=== PATIENT | female | born 1965 | race Caucasian/White ===

== ENCOUNTER → 2020-06-14 12:03 | Outpatient (BNVA) | payer BC, SELFPAY | PROVIDERS: Visit Provider Family Medicine | DX: E78.5 Hyperlipidemia, unspecified (principal); I10 Essential (primary) hypertension; G47.00 Insomnia, unspecified | CPT/HCPCS: 80053; 80061; 83721 ==

== ENCOUNTER → 2021-01-03 11:26 | Outpatient (BNVA) | payer BC, SELFPAY | PROVIDERS: Visit Provider Family Medicine | DX: E78.5 Hyperlipidemia, unspecified (principal); Z68.32 Body mass index [BMI] 32.0-32.9, adult | CPT/HCPCS: 80053; 80061; 84443; 85025 ==

== ENCOUNTER → 2021-05-29 10:18 | Outpatient (BNVA) | payer BC, SELFPAY | PROVIDERS: Visit Provider Family Medicine | DX: E78.5 Hyperlipidemia, unspecified (principal); G47.00 Insomnia, unspecified; I10 Essential (primary) hypertension | CPT/HCPCS: 80053; 80061; 85025 ==

== ENCOUNTER → 2021-12-20 14:47 | Outpatient (BNVA) | payer BC, SELFPAY | PROVIDERS: Visit Provider Family Medicine | DX: M79.644 Pain in right finger(s) (principal) | CPT/HCPCS: 73130 ==

== ENCOUNTER → 2022-05-22 13:21 | Outpatient (BNVA) | payer BC, SELFPAY | PROVIDERS: Visit Provider Family Medicine | DX: N95.1 Menopausal and female climacteric states (principal); I10 Essential (primary) hypertension; E78.5 Hyperlipidemia, unspecified; G47.00 Insomnia, unspecified | CPT/HCPCS: 80053; 80061; 84443; 85025 ==

== ENCOUNTER → 2022-07-26 12:30 | Outpatient (BNVA) | payer BC, SELFPAY | PROVIDERS: PCP Family Medicine; Visit Provider Family Medicine | DX: I10 Essential (primary) hypertension (principal); E78.5 Hyperlipidemia, unspecified | CPT/HCPCS: 80053; 80061; 84443 ==

== ENCOUNTER → 2023-02-12 11:24 | Outpatient (BNVA) | payer BC, SELFPAY | PROVIDERS: PCP Family Medicine; Visit Provider Family Medicine | DX: I10 Essential (primary) hypertension (principal); E78.5 Hyperlipidemia, unspecified | CPT/HCPCS: 80053; 80061; 84443; 85025 ==

== ENCOUNTER → 2023-11-19 11:41 | Outpatient (BNVA) | payer BC, SELFPAY | PROVIDERS: PCP Family Medicine; Visit Provider Family Medicine | DX: I10 Essential (primary) hypertension (principal); E78.5 Hyperlipidemia, unspecified; G47.00 Insomnia, unspecified | CPT/HCPCS: 80053; 80061; 84443 ==